=== PATIENT | female | born 1975 ===

== ENCOUNTER 2021-10-14 09:24 | Emergency (ER) | payer SELFPAY ==
[~2021-10-14] VITALS: Ht 172.7 cm; Wt 90.7 kg
[2021-10-14 10:57] VITALS: BP 125/73
[2021-10-14] MEDS ORDERED: METH4PAK PO (11:20)
[2021-10-14] MEDS ORDERED: AZIT500T66 PO (11:20)
== END 2021-10-14 11:25 | disposition home or self-care (01) ==
LOC: ER 09:24
DX: U07.1 COVID-19 (principal); J20.9 Acute bronchitis, unspecified
CPT/HCPCS: 71045; 93005